=== PATIENT | female | born 1960 ===

== ENCOUNTER 2019-01-02 19:22 | Inpatient (IN) ==
[~2019-01-02 19:22] MED LIST: VANCOMYCIN INJ 1,000 MG in SODIUM CHLORIDE 0.9% 250 ML IV ONE
[2019-01-02] MEDS ORDERED: SODIUM CHLORIDE 0.9% 1,000 ML IV ONE (22:04)
[2019-01-02] MEDS ORDERED: ALBUTEROL/IPRATROPIUM 3 ML NEB RESP TX PRN (22:15)
[2019-01-02] MEDS ORDERED: DEXTROSE 50% 25 GM/50 ML VIAL IV PRN (22:17)
[2019-01-02] MEDS ORDERED: GLUCAGON 1 MG VIAL IM PRN (22:17)
[2019-01-02] MEDS ORDERED: NICOTINE 21 MG/24 HR PATCH TRANSDERM PRN (22:17)
[2019-01-02] MEDS ORDERED: ONDANSETRON 4 MG/2 ML VIAL IV PRN (22:17)
[2019-01-02] MEDS ORDERED: ALBUTEROL 2.5 MG/3 ML NEB RESP TX PRN (22:17)
[2019-01-02] MEDS ORDERED: DOCUSATE SODIUM 100 MG CAPSULE PO PRN (22:17)
[2019-01-02] MEDS ORDERED: MORPHINE 4 MG/1 ML VIAL IV PRN (22:17)
[2019-01-02] MEDS ORDERED: ACETAMINOPHEN 325 MG TABLET PO PRN (22:17)
[2019-01-02] MEDS: PIPERACILLIN/TAZOBACTAM 3,375 MG in SODIUM CHLORIDE 0.9% 100 ML IV SCH (22:35)
[2019-01-02 22:45] LABS: ABG Base Excess -2.8 MMOL/L (-2.5-2.5); ABG HCO3 21.9 MMOL/L (20-26); ABG Oxygen Saturation 97.7 % (95-100); ABG PCO2 37.8 MM HG (35-48); ABG PH 7.381 (7.35-7.45); ABG PO2 107.9 MM HG (80-95); ABG TCO2 23.1 MMOL/L (23-27); Allen Test Positive
[2019-01-02 22:48] LABS: Apearance,Urine CLOUDY (Clear); Bacteria,Urine Many /HPF (Few); Bilirubin,Urine Negative (Negative); Blood, Urine Moderate mg/dL (Negative); Glucose,Urine (UA) 150 mg/dL (Negative); Ketones,Urine Negative (Negative); Nitrite,Urine Negative (Negative); Protein,Urine 100 MG/DL; RBC,Urine 62 /HPF (0-4); Urine Color Yellow (Yellow); Urine Specific Gravity 1.012 (1.001-1.035); Urine Urobilinogen < 2.0 EU/DL (0.2-1.0); WBC,Urine 2191 /HPF (0-6)
[2019-01-02] MEDS: SODIUM CHLORIDE 0.9% 1,000 ML IV SCH (23:22)
[2019-01-02 23:24] LABS: Basophils % 0.3 % (0.0-0.8); Eosinophils # 0.1 10*3/uL (0.0-0.87); Eosinophils % 0.5 % (0.00-10.9); Hematocrit 27.9 VOL% (35.7-47.0); Hemoglobin 8.6 GM/DL (12.0-16.0); Immature Granulocytes % 0.6 %; Immature Granulocytes Absolute 0.07 #; Lymphocytes # 1.3 10*3/uL (1.4-4.0); Lymphocytes % 12.2 % (21.3-54.2); Mean Corpuscular HGB Conc 30.8 GM/DL (32-36); Mean Corpuscular Volume 86.9 FL (87-102); Monocytes % 7.7 % (1.7-12.7); Neutrophils % 78.7 % (38.7-73.9); Platelet Count 290 T/CUMM (130-400); Red Blood Count 3.21 MC/CUMM (3.8-5.5); White Blood Count 10.9 T/CUMM (4-12)
[2019-01-02 23:51] LABS: Calcium 7.6 MG/DL (8.5-10.1); Osmolality,Calculated 277.2 MOS/KG (273-304)
[2019-01-03] MEDS: ALBUTEROL/IPRATROPIUM 3 ML NEB RESP TX SCH ×4 (01:16→20:14)
[2019-01-03] MEDS ORDERED: VANCOMYCIN INJ 1,000 MG in SODIUM CHLORIDE 0.9% 250 ML IV ONE (04:00)
[2019-01-03] MEDS: PIPERACILLIN/TAZOBACTAM 3,375 MG in SODIUM CHLORIDE 0.9% 100 ML IV SCH ×3 (06:14→23:15)
[2019-01-03] MEDS: INSULIN LISPRO 100 UNIT/ML SUBCUT SCH ×4 (08:33→21:08)
[2019-01-03] MEDS: PANTOPRAZOLE 40 MG TABLET PO SCH (09:02)
[2019-01-03 09:04] LABS: Alanine Aminotransferase < 9 U/L (13-56); Albumin 2.1 G/DL (3.4-5.0); Alkaline Phosphatase 143 U/L (45-117); Aspartate Amino Transferase 18 U/L (0-37); Blood Urea Nitrogen 29 MG/DL (7-18); Calcium 7.5 MG/DL (8.5-10.1); Glucose 139 MG/DL (74-106); Osmolality,Calculated 282.7 MOS/KG (273-304); Total Protein 6.1 G/DL (6.4-8.3)
[2019-01-03] MEDS: SODIUM CHLORIDE 0.9% 1,000 ML IV SCH ×3 (09:35→18:52)
[2019-01-03 09:51] LABS: HIV Antigen/Antibody Result Nonreactive (Nonreactive); Hepatitis B Core IgM Quant 0.05 Index; Hepatitis B Surface Ag Quant < 0.10 Index; Hepatitis B Surface Ag Result Negative (Negative); Hepatitis C Virus Ab Result Negative (Negative)
[2019-01-04] MEDS: ALBUTEROL/IPRATROPIUM 3 ML NEB RESP TX SCH ×4 (00:21→19:29)
[2019-01-04] MEDS ORDERED: VANCOMYCIN INJ 750 MG in SODIUM CHLORIDE 0.9% 250 ML IV SCH (04:00)
[2019-01-04 04:26] LABS: Basophils % 0.3 % (0.0-0.8); Eosinophils # 0.1 10*3/uL (0.0-0.87); Eosinophils % 1.3 % (0.00-10.9); Hemoglobin 7.9 GM/DL (12.0-16.0); Immature Granulocytes % 0.8 %; Immature Granulocytes Absolute 0.06 #; Lymphocytes # 0.9 10*3/uL (1.4-4.0); Lymphocytes % 11.4 % (21.3-54.2); Mean Corpuscular HGB Conc 31.6 GM/DL (32-36); Mean Corpuscular Volume 86.2 FL (87-102); Mean Platelet Volume 9.8 FL (9.6-12.0); Monocytes % 7.8 % (1.7-12.7); Neutrophils % 78.4 % (38.7-73.9); Platelet Count 309 T/CUMM (130-400); Red Cell Distribution Width 17.2 % (9.3-17.3); White Blood Count 7.4 T/CUMM (4-12)
[2019-01-04 04:51] LABS: Blood Urea Nitrogen 17 MG/DL (7-18); Calcium 7.3 MG/DL (8.5-10.1); Glucose 95 MG/DL (74-106); Osmolality,Calculated 278.5 MOS/KG (273-304); Troponin I < 0.015 NG/ML (0.00-0.045)
[2019-01-04] MEDS ORDERED: NIFEdipine 10 MG CAPSULE PO PRN (06:18)
[2019-01-04] MEDS: SODIUM CHLORIDE 0.9% 1,000 ML IV SCH ×3 (06:27→21:02)
[2019-01-04] MEDS: METOPROLOL TARTRATE 50 MG TABLET PO SCH ×2 (06:28→21:02)
[2019-01-04] MEDS: POTASSIUM CHLORIDE 20 MEQ TABLET PO SCH ×3 (06:28→14:45)
[2019-01-04] MEDS: INSULIN LISPRO 100 UNIT/ML SUBCUT SCH ×4 (07:18→21:02)
[2019-01-04] MEDS: ASPIRIN CHEW 81 MG TABLET PO SCH (09:13)
[2019-01-04] MEDS: PANTOPRAZOLE 40 MG TABLET PO SCH (09:13)
[2019-01-04] MEDS: GLIMEPIRIDE 4 MG TABLET PO SCH (09:13)
[2019-01-04] MEDS: PIPERACILLIN/TAZOBACTAM 3,375 MG in SODIUM CHLORIDE 0.9% 100 ML IV SCH (09:14)
[2019-01-04] MEDS ORDERED: traZODone 50 MG TABLET PO PRN (16:17)
[2019-01-04] MEDS ORDERED: FAMOTIDINE 20 MG TABLET PO PRN (16:17)
[2019-01-04] MEDS ORDERED: NF- (Alendronate [Fosamax] 70 MG) PO SCH (16:30)
[2019-01-04] MEDS ORDERED: cefTRIAXone 1,000 MG in SYRINGE 1 EACH IV SCH (16:30)
[2019-01-04] MEDS ORDERED: SIMVASTATIN 10 MG TABLET PO SCH (21:00)
[2019-01-04] MEDS: GABAPENTIN 600 MG TABLET PO SCH (21:02)
[2019-01-04] MEDS: SERTRALINE 100 MG TABLET PO SCH (21:02)
[2019-01-05] MEDS: ALBUTEROL/IPRATROPIUM 3 ML NEB RESP TX SCH ×2 (00:48→07:33)
[2019-01-05] MEDS: SODIUM CHLORIDE 0.9% 1,000 ML IV SCH ×2 (08:09→10:58)
[2019-01-05] MEDS: GLIMEPIRIDE 4 MG TABLET PO SCH (08:45)
[2019-01-05] MEDS: INSULIN LISPRO 100 UNIT/ML SUBCUT SCH (08:45)
[2019-01-05] MEDS: GABAPENTIN 600 MG TABLET PO SCH (08:45)
[2019-01-05] MEDS: PANTOPRAZOLE 40 MG TABLET PO SCH (08:46)
[2019-01-05] MEDS: ASPIRIN CHEW 81 MG TABLET PO SCH (08:46)
[2019-01-05] MEDS: SERTRALINE 100 MG TABLET PO SCH (08:47)
[2019-01-05] MEDS ORDERED: MAGNESIUM OXIDE 400 MG TABLET PO SCH (09:00)
[2019-01-05] MEDS ORDERED: AMITRIPTYLINE 25 MG TABLET PO SCH (09:00)
[2019-01-05] MEDS ORDERED: NF- (Mirabegron [Myrbetriq] 50 MG) PO SCH (09:00)
[2019-01-05] MEDS ORDERED: POTASSIUM CHLORIDE 20 MEQ TABLET PO SCH (09:00)
[2019-01-05 11:59] VITALS: BP 158/78
[2019-01-05] MEDS ORDERED: LEVOFLOXACIN 750 MG TABLET PO SCH (17:00)
== END 2019-01-05 13:20 | disposition home or self-care (01) | DRG 871 ==
LOC: SUATTDRO 22:03 → N.CC 22:03 → N.5E 01-04 08:02
PROVIDERS: ADMIT Internal Medicine; ATTEND Internal Medicine